=== PATIENT | female | born 1985 | race African-American/Black ===

== ENCOUNTER 2018-11-10 02:35 | Inpatient (IN) | payer OTHER ==
[~2018-11-10] VITALS: Ht 162.6 cm; Wt 66.3 kg
[2018-11-10] MEDS ORDERED: methylPREDNISolone SOD SUCC 125 MG/2 ML VL ONE (02:40)
[2018-11-10] MEDS ORDERED: ALBUTEROL SULF 2.5 MG/0.5ML(0.5%) NEB SOLN NEB ONE ×2 (02:45→04:15)
[2018-11-10] MEDS ORDERED: methylPREDNISolone SOD SUCC 125 MG/2 ML VL IV ONE (02:45)
[2018-11-10] MEDS ORDERED: cefTRIAXone 1GM/50ML D5W 50 ML IV ONE (02:45)
[2018-11-10] MEDS ORDERED: MAGNESIUM SULFATE 1GM/100ML 100 ML IV ONE (02:45)
[2018-11-10] MEDS ORDERED: IPRATROPIUM BROM 0.5 MG/2.5ML INH SOL NEB ONE ×2 (02:45→04:15)
[2018-11-10] MEDS ORDERED: PROMETHAZINE W/CODEINE 5 ML ORAL SYRUP PO ONE (03:15)
[2018-11-10 03:23] LABS: Basophils # (auto) 0 uL; Basophils % (auto) 0.2 % (0.0-2.0); Eosinophils % (auto) 5.9 % (0.0-7.0); Hemoglobin 13.8 g/dL (12.2-16.2); Lymphocytes # (auto) 1.7 uL; Lymphocytes % (auto) 9.9 % (10.0-50.0); Mean Corpuscular Hemoglobin 30.8 pg (28.0-32.0); Mean Corpuscular Hgb Conc. 32.9 g/dL (32.0-36.0); Mean Corpuscular Volume 93.7 fL (80.0-100.0); Monocytes # (auto) 1.1 uL; Monocytes % (auto) 6.6 % (0.0-12.0); Neutrophils # (auto) 13.5 uL; Neutrophils % (auto) 77.4 % (37.0-80.0); Platelet Count (auto) 312 10^3/uL (140-450); Red Blood Cells 4.49 10^6/uL (4.0-5.20); Red Cell Distribution Width 13.6 % (11.8-14.3); White Blood Cell 17.5 10^3/uL (4.4-10.8)
[2018-11-10 03:42] LABS: Alanine Aminotransferase 22 U/L (13-56); Albumin 3.8 g/dL (3.4-5.0); Anion Gap 10 (5-15); Aspartate Aminotransferase 16 U/L (15-37); BUN/Creatinine Ratio 7.5; Blood Urea Nitrogen 7 mg/dL (7-18); Calcium 8.3 mg/dL (8.5-10.1); Carbon Dioxide 24 mmol/L (21-32); Chloride 104 mmol/L (98-107); GFR African American > 60 mL/min; GFR Non-African American > 60 mL/min; Glucose 129 mg/dL (74-106); Potassium 3.4 mmol/L (3.5-5.1); Sodium 138 mmol/L (136-145)
[2018-11-10 03:45] LABS: Alkaline Phosphatase 81 U/L (45-117); Bilirubin, Total 0.5 mg/dL (0.2-1.0); Total Protein 7.3 g/dL (6.4-8.2)
[2018-11-10] MEDS ORDERED: PATIENTS OWN MEDICATION (XOPENEX 0.63 MG) INH STA (03:59)
[2018-11-10] MEDS ORDERED: MORPHINE SULFATE 10 MG/ML INJ 1ML SDV IV PRN (06:30)
[2018-11-10] MEDS ORDERED: ONDANSETRON HCL 4 MG/2 ML VIAL IV PRN (06:30)
[2018-11-10] MEDS ORDERED: POTASSIUM CHL 20 Meq TABLET PO ONE (06:30)
[2018-11-10] MEDS ORDERED: TEMAZEPAM 15 MG CAP PO PRN (06:30)
[2018-11-10] MEDS ORDERED: ACETAMINOPHEN 325 MG TAB PO PRN (06:30)
[2018-11-10] MEDS ORDERED: NITROGLYCERIN 0.4 MG SL TAB SL PRN (06:30)
--- NOTE | 2018-11-10 08:10 | NUR ---
RECEIVED REPORT FROM HEMANT MEDEIROS RN RE PATIENT STATUS AND FOR CONTINUATION OF CARE.
--- NOTE | 2018-11-10 08:40 | NUR ---
RECEIVED PATIENT FROM ER VIA WHEELCHAIR ACCOMPANIED BY ER STAFF,WITH SOB, COUGHING HARD WITH PRODUCTIVE SECRETION CONNECTED TO O2 AT 3 LITERS NASAL CANNULA SATURATING 96 %,DENIES ANY PAIN VITAL SIGNS TAKEN BP164/99,TEMP 98.4,HR 123 RR22.PATIENT ORIENTED TO ROOM,NURSING ROUTINES CALL LIGHT WITHIN REACH PATIENT REMINDED INSTRUCTED TO CALL FOR ASSITANCE VERBALIZED UNDERSTANDING.
[2018-11-10 09:11] VITALS: BP 164/99
[2018-11-10] MEDS: FAMOTIDINE 20 MG TAB PO SCH ×2 (10:21→21:56)
[2018-11-10] MEDS: LEVOFLOXACIN 500MG 100 ML IV SCH (10:21)
[2018-11-10] MEDS: methylPREDNISolone SOD SUCC 125 MG/2 ML VL IV SCH ×2 (10:22→21:57)
[2018-11-10 10:24] VITALS: BP 164/99
[2018-11-10] MEDS: guaiFENesin-DM 100/10mg/5ml SYR PO PRN (10:35)
[2018-11-10] MEDS ORDERED: MONT10TA23 PO (11:21)
[2018-11-10] MEDS ORDERED: ALBUAER3 IN (11:21)
[2018-11-10] MEDS: ALBUTEROL SULF 2.5 MG/0.5ML(0.5%) NEB SOLN NEB PRN ×2 (12:04→22:49)
[2018-11-10] MEDS: IPRATROPIUM BROM 0.5 MG/2.5ML INH SOL NEB PRN ×2 (12:04→22:49)
[2018-11-10 12:55] VITALS: BP 150/108
[2018-11-10] MEDS ORDERED: BENZ100C70 PO (12:57)
--- NOTE | 2018-11-10 13:00 | NUR ---
BP NOTED TO BE HIGH PATIENT STATED BP GOES UP WHEN HAVING ASTHMA ATTACK Addendum: 11/10/18 at 1410 by Ilsa Mendez RN RN PATIENT DENIES HISTORY OR HAVING HIGH BP
--- NOTE | 2018-11-10 14:50 | NUR ---
MD VISIT DR. BOSCH HERE TO SEE AND EXAMINED PATIENT,INFORMED OF EPISODES OF TACHYCARDIA AND HIGH BP WHEN ASTHMA AND COUGHING ATTACKS.
--- NOTE | 2018-11-10 15:00 | NUR ---
ASLEEP PATIENT REMAINS SINUS TACH 113
[2018-11-10 16:28] VITALS: BP 127/91
--- NOTE | 2018-11-10 19:20 | NUR ---
Opening Shift Note Assumed care of patient. Patient up walking back from the restroom. SOB on exertion noted with audible wheezing. Oxygen saturation 93%. Patient instructed on moving slow and prioritizing ADL's. Instructed on POC and to call for assist PRN, will continue to monitor for changes Q1hr and PRN.
--- NOTE | 2018-11-10 19:21 | NUR ---
REPORT GIVEN TO INCOMING NOC SHIFT RN,STATUS UNCHANGED,NO DISTRESS NO DISCOMFORT.
[2018-11-10 22:00] VITALS: BP 146/97
[2018-11-10] MEDS ORDERED: ALBUTEROL SULF 2.5 MG/0.5ML(0.5%) NEB SOLN NEB SCH (23:15)
[2018-11-10 23:43] LABS: Urine Bacteria NONE SEEN /hpf (None Seen); Urine Blood Negative /uL (Negative); Urine Mucus FEW (None Seen); Urine Specific Gravity 1.018 (1.001-1.035); Urine WBC <1 /hpf (0 - 5)
[2018-11-11] MEDS: ALBUTEROL SULF 2.5 MG/0.5ML(0.5%) NEB SOLN NEB SCH ×6 (02:17→22:02)
[2018-11-11] MEDS: IPRATROPIUM BROM 0.5 MG/2.5ML INH SOL NEB PRN ×6 (02:17→22:02)
[2018-11-11 05:10] VITALS: BP 110/76
[2018-11-11 06:48] LABS: Basophils # (auto) 0.1 uL; Basophils % (auto) 0.4 % (0.0-2.0); Eosinophils # (auto) 0 uL; Hematocrit 43.9 % (36.0-46.0); Hemoglobin 14.5 g/dL (12.2-16.2); Lymphocytes # (auto) 0.8 uL; Lymphocytes % (auto) 3.4 % (10.0-50.0); Mean Corpuscular Hemoglobin 30.9 pg (28.0-32.0); Mean Corpuscular Hgb Conc. 32.9 g/dL (32.0-36.0); Mean Corpuscular Volume 93.9 fL (80.0-100.0); Monocytes # (auto) 0.7 uL; Monocytes % (auto) 2.8 % (0.0-12.0); Neutrophils # (auto) 21.7 uL; Neutrophils % (auto) 93.4 % (37.0-80.0); Platelet Count (auto) 342 10^3/uL (140-450); Red Blood Cells 4.68 10^6/uL (4.0-5.20); Red Cell Distribution Width 13.6 % (11.8-14.3); White Blood Cell 23.3 10^3/uL (4.4-10.8)
--- NOTE | 2018-11-11 07:17 | NUR ---
CLOSING NOTE PATIENT IS RESTING IN BED WITH EYES CLOSED. EVEN AND UNLABORED RESPIRATIONS. HEAD OF BED ELEVATED. OXYGEN ON AT 3 L. NO S/S OF DISTRESS AT THIS TIME. CARE TRANSFERRED TO [place] DAY SHIFT RN.
[2018-11-11 07:20] LABS: Anion Gap 7 (5-15); BUN/Creatinine Ratio 13.1; Blood Urea Nitrogen 13 mg/dL (7-18); Calcium 9.2 mg/dL (8.5-10.1); Carbon Dioxide 23 mmol/L (21-32); Chloride 106 mmol/L (98-107); GFR African American > 60 mL/min; GFR Non-African American > 60 mL/min; Glucose 123 mg/dL (74-106); Potassium 4.2 mmol/L (3.5-5.1); Sodium 136 mmol/L (136-145)
--- NOTE | 2018-11-11 07:20 | NUR ---
Opening Shift Note Assumed care of patient, awake and alert. No S/S of distress/SOB or pain. Patient has productive cough. Instructed on POC-pulmonary consult and dietary consult and continue IV antibiotic and breathing treatment. Patient informed to call for assist PRN, will continue to monitor for changes Q1hr and PRN.
[2018-11-11 08:33] VITALS: BP 121/88
[2018-11-11] MEDS: FAMOTIDINE 20 MG TAB PO SCH ×2 (09:18→21:18)
[2018-11-11] MEDS: LEVOFLOXACIN 500MG 100 ML IV SCH (09:18)
[2018-11-11] MEDS: methylPREDNISolone SOD SUCC 125 MG/2 ML VL IV SCH (09:18)
[2018-11-11] MEDS: guaiFENesin-DM 100/10mg/5ml SYR PO PRN (09:35)
[2018-11-11 12:31] VITALS: BP 120/77
[2018-11-11] MEDS ORDERED: AZITHROMYCIN 250 MG TAB PO ONE (14:00)
[2018-11-11 16:46] VITALS: BP 130/90
[2018-11-11] MEDS: guaiFENesin-DM 100/10mg/5ml SYR PO SCH ×2 (17:37→21:18)
--- NOTE | 2018-11-11 19:40 | NUR ---
Opening Shift Note Assumed care of patient, awake and alert. No S/S of distress/SOB or pain. Patient on 3L nasal canula. Bed locked in lowest position, side rails upx2, call light within reach. Instructed on POC and to call for assist PRN, will continue to monitor for changes Q1hr and PRN.
[2018-11-11 22:00] VITALS: BP 143/91
[2018-11-12] MEDS: IPRATROPIUM BROM 0.5 MG/2.5ML INH SOL NEB PRN ×4 (02:16→18:40)
[2018-11-12] MEDS: ALBUTEROL SULF 2.5 MG/0.5ML(0.5%) NEB SOLN NEB SCH ×6 (02:16→22:00)
[2018-11-12 05:00] VITALS: BP 130/83
[2018-11-12] MEDS: guaiFENesin-DM 100/10mg/5ml SYR PO SCH ×4 (06:04→22:14)
[2018-11-12 06:47] LABS: Basophils # (auto) 0 uL; Basophils % (auto) 0.2 % (0.0-2.0); Eosinophils # (auto) 0.1 uL; Eosinophils % (auto) 0.3 % (0.0-7.0); Hematocrit 42.1 % (36.0-46.0); Hemoglobin 13.9 g/dL (12.2-16.2); Lymphocytes # (auto) 2.1 uL; Lymphocytes % (auto) 9.6 % (10.0-50.0); Mean Corpuscular Hemoglobin 31.3 pg (28.0-32.0); Mean Corpuscular Hgb Conc. 33.1 g/dL (32.0-36.0); Mean Corpuscular Volume 94.5 fL (80.0-100.0); Monocytes # (auto) 1.4 uL; Monocytes % (auto) 6.5 % (0.0-12.0); Neutrophils # (auto) 18.3 uL; Neutrophils % (auto) 83.4 % (37.0-80.0); Platelet Count (auto) 343 10^3/uL (140-450); Red Blood Cells 4.45 10^6/uL (4.0-5.20); Red Cell Distribution Width 13.6 % (11.8-14.3); White Blood Cell 21.9 10^3/uL (4.4-10.8)
[2018-11-12 07:19] LABS: Anion Gap 5 (5-15); BUN/Creatinine Ratio 15.7; Blood Urea Nitrogen 17 mg/dL (7-18); Calcium 8.6 mg/dL (8.5-10.1); Carbon Dioxide 28 mmol/L (21-32); Chloride 106 mmol/L (98-107); Glucose 89 mg/dL (74-106); Potassium 3.6 mmol/L (3.5-5.1); Sodium 139 mmol/L (136-145)
[2018-11-12 07:20] LABS: GFR African American > 60 mL/min; GFR Non-African American > 60 mL/min
--- NOTE | 2018-11-12 07:35 | NUR ---
OPENING SHIFT NOTE ASSUMED CARE OF PATIENT. PATIENT AWAKE AND ALERT SITTING UP IN BED. NO S/S OF DISTRESS OR SOB NOTED. BED IN LOWEST LOCKED POSITION, CALL LIGHT WITHIN REACH. CONTINUING TO MONITOR.
[2018-11-12 07:47] VITALS: BP 130/77
[2018-11-12] MEDS: cefTRIAXone 1GM/50ML D5W 50 ML IV SCH (09:22)
[2018-11-12] MEDS: AZITHROMYCIN 250 MG TAB PO SCH (10:31)
[2018-11-12] MEDS: FAMOTIDINE 20 MG TAB PO SCH ×2 (10:32→21:50)
[2018-11-12] MEDS ORDERED: BUDESONIDE (INHALATION) 0.5 MG/2 ML NEB NEB ONE (11:15)
[2018-11-12] MEDS ORDERED: methylPREDNISolone SOD SUCC 40 MG/ML VL IV ONE (11:15)
[2018-11-12 12:13] VITALS: BP 115/81
[2018-11-12] MEDS ORDERED: SODIUM CHLORIDE 0.9 % NEB SOLN 3ML NEB ONE (14:31)
[2018-11-12 16:39] VITALS: BP 120/71
[2018-11-12] MEDS: BUDESONIDE (INHALATION) 0.5 MG/2 ML NEB NEB SCH (18:40)
--- NOTE | 2018-11-12 19:47 | NUR ---
END OF SHIFT NOTE PATIENT RESTING COMFORTABLY IN BED. NO S/S OF DISTRESS OR SOB NOTED. BED IN LOWEST LOCKED POSITION, CALL LIGHT WITHIN REACH. CARE ENDORSED TO NOC RN.
--- NOTE | 2018-11-12 20:00 | NUR ---
Opening Shift Note Assumed care of patient, awake and alert. No S/S of distress/SOB or pain. Instructed on POC and to call for assist PRN, will continue to monitor for changes Q1hr and PRN.
[2018-11-12] MEDS: methylPREDNISolone SOD SUCC 40 MG/ML VL IV SCH (21:49)
[2018-11-12 22:00] VITALS: BP 116/72
[2018-11-13] MEDS: ALBUTEROL SULF 2.5 MG/0.5ML(0.5%) NEB SOLN NEB SCH ×4 (02:00→15:02)
[2018-11-13 05:31] VITALS: BP 125/81
[2018-11-13] MEDS: BUDESONIDE (INHALATION) 0.5 MG/2 ML NEB NEB SCH (05:59)
[2018-11-13] MEDS: guaiFENesin-DM 100/10mg/5ml SYR PO SCH (06:09)
[2018-11-13 08:46] VITALS: BP 118/84
[2018-11-13] MEDS: AZITHROMYCIN 250 MG TAB PO SCH (09:11)
[2018-11-13] MEDS: cefTRIAXone 1GM/50ML D5W 50 ML IV SCH (09:11)
[2018-11-13] MEDS: FAMOTIDINE 20 MG TAB PO SCH (09:11)
[2018-11-13] MEDS: methylPREDNISolone SOD SUCC 40 MG/ML VL IV SCH (09:11)
[2018-11-13 09:48] VITALS: BP 118/84
[2018-11-13] MEDS: IPRATROPIUM BROM 0.5 MG/2.5ML INH SOL NEB PRN (10:56)
[2018-11-13 11:28] VITALS: BP 118/84
[2018-11-13 11:46] VITALS: BP 117/84
--- NOTE | 2018-11-13 15:50 | NUR ---
DISCHARGED PATIENT DISCHARGED HOME AT THIS TIME, VIA PRIVATE FAMILY VEHICLE AFTER ALL DISCHARGE INSTRUCTIONS GIVEN AND ALL QUESTIONS AND CONCERNS ADDRESSED. IV WAS REMOVED USING CLEAN STERILE TECHNIQUE, CATHETER INTACT UPON REMOVAL, PRESSURE DRESSING APPLIED. PATIENT SHOWED NO S/S OF DISTRESS OR SOB NOTED UPON DISCHARGE.
== END 2018-11-13 15:50 | disposition home or self-care (01) | DRG 871 ==
LOC: EDBD 02:35 → ER 02:39 → TELE 06:24 → TELE-CENTR 08:40 → CENTRAL 11-12 16:12
PROVIDERS: ADMIT Nurse Practitioner; ATTEND Internal Medicine
DX: A41.9 Sepsis, unspecified organism (principal); J18.9 Pneumonia, unspecified organism; J45.901 Unspecified asthma with (acute) exacerbation; E87.6 Hypokalemia; I10 Essential (primary) hypertension; J20.9 Acute bronchitis, unspecified; R09.1 Pleurisy; Z82.49 Family history of ischemic heart disease and other diseases of the circulatory system; Z79.899 Other long term (current) drug therapy; Z79.51 Long term (current) use of inhaled steroids
CPT/HCPCS: 36415; 71045; 71046; 80048; 80053; 81001; 84702; 85025; 87070; 87086; 87205; 94640; 96361; 96365; 96368; 96375; G0378; J0696; J1956